=== PATIENT | female | born 1940 | race Caucasian/White ===

== ENCOUNTER 2018-01-15 11:02 | Emergency (ER) | payer OTHER ==
[~2018-01-15] VITALS: Ht 162.6 cm; Wt 70.3 kg
[2018-01-15 11:12] VITALS: Ht 162.6 cm; Wt 70.3 kg
[2018-01-15 12:20] VITALS: BP 134/98
== END 2018-01-15 12:20 | disposition home or self-care (01) ==
LOC: ED 11:02
DX: H66.92 Otitis media, unspecified, left ear (principal); I10 Essential (primary) hypertension; E11.9 Type 2 diabetes mellitus without complications; Z88.8 Allergy status to other drugs, medicaments and biological substances
CPT/HCPCS: J2001

== ENCOUNTER 2019-04-12 13:24 | Emergency (ER) | payer OTHER ==
[~2019-04-12] VITALS: Ht 162.6 cm; Wt 71.2 kg
[2019-04-12 13:33] VITALS: Ht 162.6 cm; Wt 71.2 kg
[2019-04-12 16:44] VITALS: BP 152/78
== END 2019-04-12 16:44 | disposition home or self-care (01) ==
LOC: ED 13:24
DX: J98.01 Acute bronchospasm (principal); I10 Essential (primary) hypertension; E11.9 Type 2 diabetes mellitus without complications; Z88.8 Allergy status to other drugs, medicaments and biological substances
CPT/HCPCS: 87804; J0696; J7512; J7613

== ENCOUNTER 2019-06-29 08:45 | Emergency (ER) | payer OTHER ==
[~2019-06-29] VITALS: Ht 165.1 cm; Wt 71.2 kg
[2019-06-29 08:55] VITALS: Ht 165.1 cm; Wt 71.2 kg
[2019-06-29 11:19] LABS: BASOPHIL % 0.4 % (0-2); PLATELET COUNT 244 x10^3mcL (130-400); RED CELL DISTRIBUTION WIDTH 12.8 % (11.5-14.5)
[2019-06-29 11:22] VITALS: BP 105/82
[2019-06-29 11:37] LABS: UA SPECIFIC GRAVITY <=1.005 (1.005-1.035); microscopic required? YES; urine erythrocyte 1+ (NEGATIVE)
[2019-06-29 11:42] LABS: CALCIUM 9.6 mg/dL (8.5-10.1); CARBON DIOXIDE 26.2 mmol/L (21-32); CHLORIDE SERUM 105 mmol/L (98-107); CREATININE SERUM 0.8 mg/dL (0.6-1.0); GLUCOSE SERUM 95 mg/dL (74-106); POTASSIUM SERUM 3.9 mmol/L (3.5-5.1); SODIUM SERUM 140 mmol/L (136-145)
[2019-06-29 11:56] LABS: ALBUMIN 3.8 g/dL (3.4-5.0); ALKALINE PHOSPHATASE 101 U/L (46-116); ALT/SGPT 24 U/L (14-59); AST/SGOT 22 U/L (15-37); BILIRUBIN TOTAL 0.3 mg/dL (0.20-1.00); C REACTIVE PROTEIN 0.7 mg/dL (<=0.9); LIPASE 100 IU/L (73-393); T4(THYROXINE) 5.5 ug/dL (4.7-13.3); TOTAL PROTEIN, SERUM 7.9 g/dL (6.4-8.2)
[2019-06-29 11:58] LABS: CHOLESTEROL 118 mg/dL (<200)
[2019-06-29 12:03] LABS: ERYTHROCYTE SED RATE 43 mm/hr (0-30)
== END 2019-06-29 11:22 | disposition home or self-care (01) ==
LOC: ED 08:45
PROVIDERS: Emergency Medicine
DX: J32.0 Chronic maxillary sinusitis (principal); G51.0 Bell's palsy; E11.9 Type 2 diabetes mellitus without complications; I10 Essential (primary) hypertension; E78.00 Pure hypercholesterolemia, unspecified; Z90.89 Acquired absence of other organs; Z88.8 Allergy status to other drugs, medicaments and biological substances
CPT/HCPCS: 36415

== ENCOUNTER 2019-08-28 17:59 | Inpatient (IN) | payer OTHER ==
[~2019-08-28] VITALS: Ht 162.6 cm; Wt 70.8 kg
[2019-08-28 18:05] VITALS: Ht 162.6 cm; Wt 70.8 kg
[2019-08-28 19:43] LABS: BASOPHIL % 0.7 % (0-2); PLATELET COUNT 251 x10^3mcL (130-400); RED CELL DISTRIBUTION WIDTH 13.5 % (11.5-14.5)
[2019-08-28 20:09] LABS: CALCIUM 9.6 mg/dL (8.5-10.1); CARBON DIOXIDE 29.3 mmol/L (21-32); CHLORIDE SERUM 105 mmol/L (98-107); CREATININE SERUM 0.8 mg/dL (0.6-1.0); GLUCOSE SERUM 107 mg/dL (74-106); SODIUM SERUM 142 mmol/L (136-145)
[2019-08-28 20:14] LABS: ALBUMIN 4.1 g/dL (3.4-5.0); ALKALINE PHOSPHATASE 98 U/L (46-116); ALT/SGPT 24 U/L (14-59); AST/SGOT 22 U/L (15-37); BILIRUBIN TOTAL 0.3 mg/dL (0.20-1.00)
[2019-08-28 20:22] LABS: TOTAL PROTEIN, SERUM 8.4 g/dL (6.4-8.2)
[2019-08-28] MEDS ORDERED: SIMVASTATIN5 M2 PO (21:06)
[2019-08-28 22:39] LABS: CHOLESTEROL/HDL RATIO 3.7
[2019-08-28 22:46] LABS: FREE T4 0.94 ng/dL (0.76-1.46); FREE THYROXINE INDEX 2.1 ug/dL (1.4-4.5); T4(THYROXINE) 6.5 ug/dL (4.7-13.3)
[2019-08-29 01:32] LABS: T3 TOTAL 1.23 ng/mL
[2019-08-29] MEDS ORDERED: JANUVIA100 M1 PO (02:26)
[2019-08-29] MEDS ORDERED: SIMVASTATIN20 M1 PO (02:26)
[2019-08-29] MEDS ORDERED: BENAZEPRIL HYDRO5 M1 PO (02:26)
[2019-08-29] MEDS ORDERED: AMLODIPINE BESYL5 M2 PO (02:27)
[2019-08-29 03:21] VITALS: BP 122/53
[2019-08-29 05:15] VITALS: BP 126/77
[2019-08-29 07:15] LABS: BASOPHIL % 0.3 % (0-2); PLATELET COUNT 228 x10^3mcL (130-400); RED CELL DISTRIBUTION WIDTH 12.7 % (11.5-14.5)
[2019-08-29 07:33] LABS: CARBON DIOXIDE 26.4 mmol/L (21-32); CHLORIDE SERUM 109 mmol/L (98-107); CREATININE SERUM 0.8 mg/dL (0.6-1.0); GLUCOSE SERUM 88 mg/dL (74-106); SODIUM SERUM 142 mmol/L (136-145)
[2019-08-29 08:45] VITALS: BP 101/46
[2019-08-29 12:36] VITALS: BP 138/63
[2019-08-29 16:45] VITALS: BP 128/66
[2019-08-29 21:45] VITALS: BP 138/68
[2019-08-30 01:14] LABS: UA SPECIFIC GRAVITY 1.015 (1.005-1.035); microscopic required? YES; urine erythrocyte 1+ (NEGATIVE)
[2019-08-30 06:24] VITALS: BP 137/74
[2019-08-30 07:10] LABS: BASOPHIL % 0.4 % (0-2); PLATELET COUNT 228 x10^3mcL (130-400); RED CELL DISTRIBUTION WIDTH 13.1 % (11.5-14.5)
[2019-08-30 07:22] LABS: CALCIUM 9.5 mg/dL (8.5-10.1); CARBON DIOXIDE 30.3 mmol/L (21-32); CHLORIDE SERUM 106 mmol/L (98-107); CREATININE SERUM 0.9 mg/dL (0.6-1.0); GLUCOSE SERUM 88 mg/dL (74-106); MAGNESIUM 2.1 mg/dL (1.8-2.4); PHOSPHOROUS 4.2 mg/dL (2.5-4.9); SODIUM SERUM 143 mmol/L (136-145)
[2019-08-30 08:15] VITALS: BP 123/61
[2019-08-30 12:20] VITALS: BP 123/61
[2019-08-30 16:30] VITALS: BP 114/62
[2019-08-30 21:39] VITALS: BP 140/78
[2019-08-31 05:54] VITALS: BP 128/65
[2019-08-31 06:28] LABS: BASOPHIL % 0.4 % (0-2); PLATELET COUNT 237 x10^3mcL (130-400); RED CELL DISTRIBUTION WIDTH 13.1 % (11.5-14.5)
[2019-08-31 06:35] LABS: CALCIUM 9.4 mg/dL (8.5-10.1); CHLORIDE SERUM 105 mmol/L (98-107); CREATININE SERUM 0.9 mg/dL (0.6-1.0); GLUCOSE SERUM 94 mg/dL (74-106); PHOSPHOROUS 3.9 mg/dL (2.5-4.9); POTASSIUM SERUM 4.1 mmol/L (3.5-5.1); SODIUM SERUM 142 mmol/L (136-145)
[2019-08-31 08:40] VITALS: BP 121/69
[2019-08-31 16:31] VITALS: BP 104/54
[2019-08-31 21:45] VITALS: BP 122/71
[2019-09-01 06:10] VITALS: BP 99/61
[2019-09-01 07:40] LABS: BASOPHIL % 0.3 % (0-2); PLATELET COUNT 225 x10^3mcL (130-400); RED CELL DISTRIBUTION WIDTH 12.8 % (11.5-14.5)
[2019-09-01 08:20] LABS: CALCIUM 9.1 mg/dL (8.5-10.1); CARBON DIOXIDE 26.8 mmol/L (21-32); CHLORIDE SERUM 107 mmol/L (98-107); CREATININE SERUM 0.7 mg/dL (0.6-1.0); GLUCOSE SERUM 88 mg/dL (74-106); MAGNESIUM 2.1 mg/dL (1.8-2.4); PHOSPHOROUS 3.7 mg/dL (2.5-4.9); POTASSIUM SERUM 4.3 mmol/L (3.5-5.1); SODIUM SERUM 143 mmol/L (136-145)
[2019-09-01 08:24] VITALS: BP 110/58
[2019-09-01 20:53] VITALS: BP 106/59
[2019-09-02 05:31] VITALS: BP 124/55
[2019-09-02 08:38] VITALS: BP 120/49
[2019-09-02] MEDS ORDERED: AMERINET CHOIC500 MG IV (10:02)
[2019-09-02] MEDS ORDERED: ROC1I IV (10:03)
[2019-09-02 12:59] VITALS: BP 117/67
[2019-09-02 15:53] VITALS: BP 117/67
== END 2019-09-02 17:02 | DRG 193 ==
LOC: ED 17:59 → DU 21:46 → MU 09-01 16:54
PROVIDERS: Emergency Medicine; ADMIT Internal Medicine
DX: J18.9 Pneumonia, unspecified organism (principal); J96.01 Acute respiratory failure with hypoxia; J44.1 Chronic obstructive pulmonary disease with (acute) exacerbation; E11.9 Type 2 diabetes mellitus without complications; I10 Essential (primary) hypertension; R00.1 Bradycardia, unspecified; E78.5 Hyperlipidemia, unspecified; Z68.26 Body mass index [BMI] 26.0-26.9, adult; Z79.84 Long term (current) use of oral hypoglycemic drugs
CPT/HCPCS: 82962; 83880; 84439; 87804; 97116-GP; G0378; J0456; J0696; J1885; J7050; J7060; Q0092; U0002

== ENCOUNTER 2020-03-24 09:14 | Observation (INO) | payer OTHER ==
[~2020-03-24] VITALS: Ht 162.6 cm; Wt 68.9 kg
[~2020-03-24 09:14] MED LIST: AMERINET CHOIC500 MG IV; AMLODIPINE BESYL5 M2 PO; BENAZEPRIL HYDRO5 M1 PO; JANUVIA100 M1 PO; ROC1I IV; SIMVASTATIN20 M1 PO; SIMVASTATIN5 M2 PO
[2020-03-24 09:18] VITALS: Ht 162.6 cm; Wt 68.9 kg
[2020-03-24 11:29] LABS: microscopic required? YES; urine erythrocyte TRACE (NEGATIVE)
[2020-03-24 11:32] LABS: BASOPHIL % 0.3 % (0-2); PLATELET COUNT 236 x10^3mcL (130-400); RED CELL DISTRIBUTION WIDTH 12.9 % (11.5-14.5)
[2020-03-24 12:00] LABS: CARBON DIOXIDE 29.7 mmol/L (21-32); CHLORIDE SERUM 105 mmol/L (98-107); CREATININE SERUM 0.9 mg/dL (0.6-1.0); GLUCOSE SERUM 94 mg/dL (74-106); POTASSIUM SERUM 4.2 mmol/L (3.5-5.1); SODIUM SERUM 142 mmol/L (136-145)
[2020-03-24 12:04] LABS: ALBUMIN 3.8 g/dL (3.4-5.0); ALKALINE PHOSPHATASE 90 U/L (46-116); ALT/SGPT 24 U/L (14-59); AST/SGOT 21 U/L (15-37); BILIRUBIN TOTAL 0.46 mg/dL (0.20-1.00); C REACTIVE PROTEIN 0.3 mg/dL (<=0.9); LACTIC DEHYDROGENASE (LDH) 178 U/L (100-190); TOTAL PROTEIN, SERUM 7.8 g/dL (6.4-8.2)
[2020-03-24 13:32] LABS: MAGNESIUM 2.2 mg/dL (1.8-2.4)
[2020-03-24 13:34] LABS: CHOLESTEROL/HDL RATIO 3.2
[2020-03-24] MEDS ORDERED: JANUVIA100 M1 PO (14:40)
[2020-03-24] MEDS ORDERED: SIMVASTATIN5 M2 PO (14:42)
[2020-03-24] MEDS ORDERED: AZOR 10-20 MG1 EACH PO (14:42)
[2020-03-24] MEDS ORDERED: SERTRALINE H20 MG/ML PO (14:42)
[2020-03-24] MEDS ORDERED: ALOGLIPTIN25 MG PO (14:42)
[2020-03-24 17:03] VITALS: BP 107/52
[2020-03-24 20:12] VITALS: BP 134/68
[2020-03-25 05:22] VITALS: BP 135/57
[2020-03-25 07:00] LABS: BASOPHIL % 0.3 % (0-2); PLATELET COUNT 223 x10^3mcL (130-400)
[2020-03-25 07:06] LABS: CALCIUM 8.7 mg/dL (8.5-10.1); CARBON DIOXIDE 28.6 mmol/L (21-32); CHLORIDE SERUM 102 mmol/L (98-107); CREATININE SERUM 0.8 mg/dL (0.6-1.0); GLUCOSE SERUM 95 mg/dL (74-106); SODIUM SERUM 137 mmol/L (136-145)
[2020-03-25 08:12] VITALS: BP 130/72
[2020-03-25 12:40] VITALS: BP 129/63
[2020-03-25 16:16] VITALS: BP 127/71
[2020-03-25 21:00] VITALS: BP 106/54
[2020-03-26 05:00] VITALS: BP 111/61
[2020-03-26 09:52] VITALS: BP 136/62
[2020-03-26 13:04] VITALS: BP 114/67
[2020-03-26 16:39] VITALS: BP 129/77
[2020-03-26 20:18] VITALS: BP 100/64
[2020-03-27 05:27] VITALS: BP 118/64
[2020-03-27 08:24] VITALS: BP 146/71
[2020-03-27] MEDS ORDERED: COLACE100 MG PO (12:24)
[2020-03-27] MEDS ORDERED: SENNA8.6 M2 PO (12:24)
[2020-03-27 12:35] VITALS: BP 118/63
== END 2020-03-27 15:25 | disposition home or self-care (01) ==
LOC: ED 09:14 → DU 12:34
PROVIDERS: Specialist; ADMIT Hospitalist; ATTEND Hospitalist
DX: R07.89 Other chest pain (principal); E11.9 Type 2 diabetes mellitus without complications; I10 Essential (primary) hypertension; E78.5 Hyperlipidemia, unspecified; F41.8 Other specified anxiety disorders
CPT/HCPCS: 36600; 82962; 83880; 87804; G0378; J7030; Q0092